=== PATIENT | male | born 1955 | race Caucasian/White ===

== ENCOUNTER 2016-10-30 21:06 | Inpatient (IN) | payer OTHER ==
[~2016-10-30] VITALS: Ht 185.4 cm; Wt 106.1 kg
[2016-10-30 22:01] LABS: EOSINOPHIL (%) 2.5 % (0-5); EOSINOPHIL COUNT 0.2 K/uL (0-0.3); IMMATURE GRANULOCYTE (%) 0.3 % (0.0-0.7); INSTRUMENT ABS NEUTROPHIL CT 6.9 K/uL; MCH 31.4 PG (29.0-34.0); MCHC 32.7 G/DL (30.0-36.0); MCV 96.1 FL (86-99); MEAN PLAT.VOLUME 9.3 uM^3 (9.0-12.4); MONOCYTE (%) 8.6 % (3-12); MONOCYTE COUNT 0.8 K/uL (0-0.8); NEUTROPHIL (%) 77.3 % (45-76); NEUTROPHIL COUNT 6.9 K/uL (1.8-6.4); PLATELET COUNT 235 K/uL (156-360); RBC DIS.WIDTH-CV 13.2 % (11.8-14.6); RBC DIS.WIDTH-SD 46.8 % (39-53); RED BLOOD COUNT 3.85 M/uL (4.00-5.50)
[2016-10-30 22:11] LABS: CHLORIDE 100 mEq/L (99-109); SODIUM 138 mEq/L (136-147)
[2016-10-30 22:13] LABS: GLUCOSE 155 mg/dL (70-99)
[2016-10-30 22:14] LABS: ANION GAP 7 MEQ/L (2-14)
[2016-10-30 22:17] LABS: GFR ESTIMATE (CALCULATED) > 59 mL/min/
[2016-10-30 22:18] LABS: UREA NITROGEN (BUN) 11 mg/dL (9-23)
[2016-10-31] VITALS (8 sets, daily range): BP systolic 96–112; BP diastolic 56–67
[2016-10-31] MEDS ORDERED: MORPHINE SULFA100 M2 PO (01:05)
[2016-10-31] MEDS ORDERED: OXYCODONE HCL30 MG PO (01:06)
[2016-10-31] MEDS ORDERED: GABAPENTIN300 MG PO (01:06)
[2016-10-31] MEDS ORDERED: TAMSULOSIN HCL0.4 MG PO (01:07)
[2016-10-31] MEDS ORDERED: ALPRAZOLAM1 MG PO (01:07)
[2016-10-31] MEDS ORDERED: SENTRY SENIOR1 EAC1 PO (12:12)
[2016-11-01 03:38] VITALS: BP 106/61
[2016-11-01 05:57] LABS: HEMATOCRIT 34.1 % (38.0-50.0); MCH 32.1 PG (29.0-34.0); MCHC 33.7 G/DL (30.0-36.0); MCV 95.3 FL (86-99); MEAN PLAT.VOLUME 9.7 uM^3 (9.0-12.4); PLATELET COUNT 219 K/uL (156-360); RBC DIS.WIDTH-SD 44.8 % (39-53); RED BLOOD COUNT 3.58 M/uL (4.00-5.50); WHITE BLOOD COUNT 10.7 K/uL (4.1-10.2)
[2016-11-01 06:29] LABS: ANION GAP 6 MEQ/L (2-14); CHLORIDE 104 MEQ/L (99-109); GFR ESTIMATE (CALCULATED) > 59 mL/min/; POTASSIUM 4.3 MEQ/L (3.7-5.4); SAMPLE HEMOLYSIS CHECK 0; SAMPLE ICTERIC CHECK 0; SAMPLE LIPEMIA CHECK 0; SODIUM 140 MEQ/L (136-147); UREA NITROGEN (BUN) 16 mg/dL (9-23)
[2016-11-01 06:31] LABS: GLUCOSE 116 mg/dL (70-99)
[2016-11-01 08:01] VITALS: BP 135/87
[2016-11-01 11:18] VITALS: BP 125/77
[2016-11-01 17:04] VITALS: BP 133/75
[2016-11-01 20:15] VITALS: BP 115/63
[2016-11-01 23:39] VITALS: BP 119/65
[2016-11-02 03:55] VITALS: BP 119/76
[2016-11-02 06:54] LABS: HEMATOCRIT 35.9 % (38.0-50.0); MCH 31.7 PG (29.0-34.0); MCHC 33.4 G/DL (30.0-36.0); MEAN PLAT.VOLUME 9.6 uM^3 (9.0-12.4); PLATELET COUNT 221 K/uL (156-360); RBC DIS.WIDTH-CV 13.3 % (11.8-14.6); RBC DIS.WIDTH-SD 46.5 % (39-53); RED BLOOD COUNT 3.78 M/uL (4.00-5.50); WHITE BLOOD COUNT 10.4 K/uL (4.1-10.2)
[2016-11-02 07:24] LABS: ANION GAP 6 MEQ/L (2-14); CHLORIDE 106 MEQ/L (99-109); GFR ESTIMATE (CALCULATED) > 59 mL/min/; GLUCOSE 99 mg/dL (70-99); POTASSIUM 4.4 MEQ/L (3.7-5.4); SAMPLE HEMOLYSIS CHECK 0; SAMPLE ICTERIC CHECK 0; SAMPLE LIPEMIA CHECK 0; SODIUM 142 MEQ/L (136-147); UREA NITROGEN (BUN) 17 mg/dL (9-23)
[2016-11-02 07:51] VITALS: BP 130/81
[2016-11-02] MEDS ORDERED: TAMSULOSIN HCL0.4 MG PO (10:19)
[2016-11-02] MEDS ORDERED: DUONEB 2.5-0.5 M3 ML AEROSOL (10:19)
[2016-11-02] MEDS ORDERED: CEFDINIR300 MG PO (10:19)
[2016-11-02] MEDS ORDERED: SPIRIVA RESPIMAT4 GM IH (10:19)
[2016-11-02] MEDS ORDERED: FUROSEMIDE20 MG PO (10:19)
[2016-11-02] MEDS ORDERED: ADVAIR 100/501 DISK IH (10:21)
[2016-11-02] MEDS ORDERED: SPIRIVA1 INHALATI IH (10:21)
[2016-11-02] MEDS ORDERED: PREDNISONE20 MG PO (10:40)
[2016-11-02 11:20] VITALS: BP 142/84
== END 2016-11-02 13:29 | disposition home health service (06) | DRG 190 ==
LOC: EME 21:06 → EDOF 10-31 00:32 → 3EAST 10-31 00:32 → ENRESERV 10-31 00:38 → 3EAST 10-31 01:56
PROVIDERS: Internal Medicine; Physician Assistant
DX: J44.0 Chronic obstructive pulmonary disease with (acute) lower respiratory infection (principal); J20.9 Acute bronchitis, unspecified; J44.1 Chronic obstructive pulmonary disease with (acute) exacerbation; J96.01 Acute respiratory failure with hypoxia; R60.0 Localized edema; I27.2 Other secondary pulmonary hypertension; G89.29 Other chronic pain; M54.30 Sciatica, unspecified side; M41.9 Scoliosis, unspecified; N40.0 Benign prostatic hyperplasia without lower urinary tract symptoms; F17.200 Nicotine dependence, unspecified, uncomplicated; Z80.0 Family history of malignant neoplasm of digestive organs; Z80.42 Family history of malignant neoplasm of prostate
CPT/HCPCS: 71010; 71275; 80048; 83880; 85025; 85027; 93005; 93306; 93970; 94640; 94640 76; 94760; 94799; 99202; 99281; 99284; J0696; J1170; J1650; J2930; J7050; J7512